=== PATIENT | female | born 1960 | race Hispanic/Latino ===

== ENCOUNTER 2018-06-09 07:03 | Observation (INO) | payer OTHER ==
[2018-06-08 15:32] LABS: BASOPHILS % 0.6 % (0.0-1.0); EOSINOPHILS # (AUTO) 0.3 (0.0-0.4); EOSINOPHILS % 4.1 % (0.0-6.0); HEMATOCRIT 37.5 % (34.2-44.1); HEMOGLOBIN 12.7 g/dL (12.0-16.0); LYMPHOCYTES # (AUTO) 1.4 (1.0-3.2); LYMPHOCYTES % 21.1 % (18.0-39.1); MEAN CORPUSCULAR HEMOGLOBIN 28.8 pg (28-32); MEAN CORPUSCULAR HGB CONC 33.9 g/dL (31-35); MONOCYTES # (AUTO) 0.3 (0.2-0.8); NEUTROPHILS # (AUTO) 4.8 (2.1-6.9); NEUTROPHILS % 69.9 % (38.7-80.0); PLATELET COUNT 230 x10e3/uL (140-360); RED BLOOD COUNT 4.41 x10e6/uL (3.6-5.1); RED CELL DISTRIBUTION WIDTH 14.3 % (11.7-14.4)
[2018-06-08 15:48] LABS: ANION GAP 11.9 mmol/L (8-16); BLOOD UREA NITROGEN 12 mg/dL (7-26); BUN/CREATININE RATIO 15 (6-25); CARBON DIOXIDE 29 mmol/L (22-29); CHLORIDE 102 mmol/L (98-107); CREATININE, SERUM 0.82 mg/dL (0.57-1.11); EST GLOMERULAR FILTRATION RATE > 60 ML/MIN (60-); GLUCOSE 144 mg/dL (74-118); POTASSIUM 3.9 mmol/L (3.5-5.1); SODIUM 139 mmol/L (136-145)
[2018-06-08 15:51] LABS: INR 0.91; PROTHROMBIN TIME 13.1 seconds (11.9-14.5)
[2018-06-08 15:52] LABS: PARTIAL THROMBOPLASTIN TIME 33.5 seconds (23.8-35.5)
--- NOTE | 2018-06-08 15:54 | Diagnostic Imaging Report ---
EXAM: XR CHEST 2 VIEWS DATE: 06/08/2018 3:06 PM INDICATION: Preoperative. Cervical spine surgery. COMPARISON: None FINDINGS: Lines and Tubes: None Heart and Mediastinum: No acute cardiomediastinal findings. Mild aortic vascular calcifications. Lungs and Pleura: No significant pleural effusion, pneumothorax, or focal consolidation. Minimal opacities in the lung bases statistically represent atelectasis, however, infectious process could have a similar appearance. Bones and Soft Tissues: No acute findings. IMPRESSION: 1. No acute cardiopulmonary findings. Signed by: Dr. Louis Taveras MD on 06/08/2018 3:51 PM
[~2018-06-09] VITALS: Ht 154.9 cm; Wt 94.4 kg
[~2018-06-09 07:03] MED LIST: BACITRACIN 50,000 UNIT VIAL ONE; BUPIVACAINE 0.5%/EPI 30 ML SDV INJ ONE; CYMBALTA30 MG; GELATIN SPONGE 12-7MM ONE; LYRICA25 MG PO; THROMBIN FOR SOLN 5,000 UNIT VIAL ONE
--- OUTSIDE RECORDS SUMMARY | 2018-06-09 07:05 | XMS REPORT ---
Author Author [facility] Address Unknown Phone Unavailable Care Team Providers Care Edger Hand Name Role Phone LUCIE CARDOZA Unavailable Unavailable Problems This patient has no known problems. Allergies, Adverse Reactions, Alerts This patient has no known allergies or adverse reactions. Medications This patient has no known medications. Results Test Description Test Time Test Comments Text Results Atomic Results Result Comments CHEST 2 VIEWS 2018-06-08 15:50:00 [place] [address] Patient Name: SHERIF KIM MR #: [id number] : 1960 Age/Sex: 57/F Req #: [id number] Adm Physician: Ordered by: LUCIE CARDOZA MD Report #: [id number] Location: OR Room/Bed: Procedure: [id number] DX/CHEST 2 VIEWS Exam Date: 06/08/18 Exam Time: 1520 REPORT STATUS: Signed EXAM: XR CHEST 2 VIEWS DATE: 06/08/2018 3:06 PM IND ICATION: Preoperative. Cervical spine surgery. COMPARISON: None FINDINGS: Lines and Tubes: None Heart and Mediastinum: No acute cardiomediastinal findings. Mild aortic vascular calcifications. Lungs and Pleura: No significant pleural effusion, pneumothorax, or focal consolidation. Minimal opacities in the lung bases statistically represent atelectasis, however, infectious process could have a similar appearance. Bones and Soft Tissues: No acute findings. IMPRESSION: 1. No acute cardiopulmonary findings. Signed by: Dr. Louis Momin MD on 06/08/2018 3:5 1 PM Dictated By: LOUIS MOMIN MD 50 Transcribed By: TROY on 06/08/181550 COPY TO: LUCIE CARDOZA MD
[2018-06-09] MEDS ORDERED: ACETAMINOPHEN 1000 MG/100 ML 100 ML IV ONE (07:16)
[2018-06-09] MEDS ORDERED: LIDOCAINE HCL (LTA) 4 ML SOLN ONE (07:16)
[2018-06-09] MEDS ORDERED: CEFAZOLIN SOD 2 GM/D5W 50ML 50 ML IV ONE (07:39)
[2018-06-09] MEDS: LACTATED RINGER'S 1,000 ML IV SCH ×3 (10:54→20:31)
[2018-06-09] MEDS ORDERED: MORPHINE SULFATE 5 MG/ML VIAL IM PRN (11:00)
[2018-06-09] MEDS ORDERED: ONDANSETRON HCL INJ 2 MG/ML VIAL IV PRN (11:00)
[2018-06-09] MEDS ORDERED: HYDROMORPHONE 2MG/ML 2 MG/ML ML IV PRN (11:00)
[2018-06-09] MEDS ORDERED: ACETAMINOPHEN 325 MG TAB PO PRN (11:00)
[2018-06-09] MEDS ORDERED: MAGNESIUM/ALUMINUM/SIMETHICONE 30 ML UDC PO PRN (11:00)
[2018-06-09] MEDS ORDERED: PROMETHAZINE HCL (IM) 25 MG/ML VIAL IM PRN (11:00)
[2018-06-09] MEDS ORDERED: FENTANYL CITRATE/PF 100MCG/2 ML INJ ONE ×2 (11:11→17:22)
--- NOTE | 2018-06-09 11:23 | Operative Report ---
DATE OF PROCEDURE: June 09, 2018 PREOPERATIVE DIAGNOSIS: C5-6 and C6-7 spondylosis and foraminal stenosis with radiculopathy, M50.120. POSTOPERATIVE DIAGNOSIS: C5-6 and C6-7 spondylosis and foraminal stenosis with radiculopathy, M50.120. PROCEDURES 1. C5-6 anterior cervical diskectomy and microsurgical osteophyte resection and allograft fusion, . 2. C6-C7 anterior cervical diskectomy and microsurgical osteophyte resection and allograft fusion, . 3. Preparation of tricortical iliac crest allograft, . 4. C5-6 and C6-7 anterior cervical plate and screw fixation, . ANESTHESIA: General. INDICATIONS: The patient is a woman who presents with C5-C6 and C6-C7 spondylosis and disk herniations and bilateral foraminal stenosis, worse on the right symptomatic with a right-sided cervical radiculopathy refractory to conservative treatment. She was taken to the operating room for 2-level anterior cervical decompression and fusion. PROCEDURE: After the induction of general anesthesia, the patient was placed on the operating table in the supine position. The right side of the neck was prepped and draped in sterile fashion. The fluoroscopic C-arm was positioned in cross-table lateral orientation. A small transverse incision was created on the right side of the neck superimposed on the C6 vertebral body as determined by fluoroscopy. The platysma was divided in line with the incision. A subplatysmal dissection was carried out. An avascular plane of dissection was developed medial to sternocleidomastoid muscle and was followed medial to the carotid sheath to the anterior border the cervical spine. The deep cervical fascia was opened. The esophagus was retracted to the left. The attachments of the longus coli muscles to the anterolateral aspects of the vertebral bodies of C5, C6 and C7 were divided. The anterior longitudinal ligament was resected. Partridge posts were inserted into C5 and C7. The Partridge distractor was used to distract both disk spaces simultaneously. The anterior annuli of disks were incised a #11 blade. The contents of both disks were thoroughly evacuated with angled curets and pituitary rongeurs. The posterior osteophytes were meticulously drilled with a 2-mm cutting bur on a high-speed drill until they were completely removed. The posterior annulus of the disk, herniated disk material and posterior longitudinal ligament were resected layer by layer until the dura was fully exposed and decompressed. The medial aspects of uncinate processes were resected bilaterally to further expose and decompress the origins of the corresponding nerve roots. After satisfactory decompression had been achieved, the endplates were prepared for fusion. Two pieces of tricortical iliac crest allograft were cut to size and shapes of the spaces and were inserted into the disk spaces under distraction and fluoroscopic guidance. Distraction was released, and the distraction posts were removed. A Synthes CSLP variable-type anterior cervical plate was selected and affixed to the vertebral bodies of C5, C6 and C7 with 3 pairs of 14 x 4.35 mm screws. Each screw hole was first drilled and tapped under lateral fluoroscopic guidance. Each screw was locked with the appropriate locking screws. An excellent construct was obtained. The wound was copiously irrigated with Bacitracin solution. Meticulous hemostasis was secured. Retractor was removed. The platysma was closed with 3-0 Vicryl sutures. The skin was closed with 4-0 Monocryl sutures in a subcuticular fashion. Steri-Strips and dressing were applied. The patient was awakened, extubated and taken to the postanesthesia care unit in stable condition. No intraoperative complications were encountered. Estimated blood loss was 30 mL. Job#: [id number]
[2018-06-09 13:47] VITALS: BP 152/83
[2018-06-09 13:51] VITALS: BP 152/83
[2018-06-09 13:52] VITALS: BP 152/83
[2018-06-09] MEDS ORDERED: CEFAZOLIN SOD 1 GM/D5W 50ML 50 ML IV SCH (14:00)
[2018-06-09] MEDS: OXYCODONE/ACETAMINOPHEN 5-325 1 EACH TABLET PO PRN (15:01)
[2018-06-09] MEDS: CARISOPRODOL 350 MG TAB PO PRN (15:01)
[2018-06-09] MEDS ORDERED: MORPHINE SULFATE INJ 10 MG/ML IM PRN (15:45)
[2018-06-09 16:00] VITALS: BP 146/70
[2018-06-09] MEDS: CEFAZOLIN SOD 1 GM VIAL IV SCH (16:44)
[2018-06-09] MEDS ORDERED: MIDAZOLAM HCL 2 MG/2 ML VIAL ONE (17:22)
[2018-06-09] MEDS ORDERED: ONDANSETRON HCL INJ 2 MG/ML VIAL ONE (19:24)
[2018-06-09] MEDS ORDERED: ROCURONIUM BROMIDE 10 MG/ML 5ML VIAL ONE (19:24)
[2018-06-09] MEDS ORDERED: LIDOCAINE HCL 2% LOCAL INJ 5 ML SDV VIAL INJ ONE (19:24)
[2018-06-09] MEDS ORDERED: SEVOFLURANE INHAL SOLN 250 ML PEN BTL ONE (19:24)
[2018-06-09] MEDS ORDERED: PROPOFOL IV EMULSION 10 MG/ML 20 ML VIAL ONE (19:24)
[2018-06-09] MEDS ORDERED: DEXAMETHASONE SOD PHOS INJ 4 MG/ML VIAL ONE (19:24)
[2018-06-09 19:40] VITALS: BP 144/67
[2018-06-09] MEDS ORDERED: ZOLPIDEM TARTRATE 5 MG TAB PO PRN (21:00)
[2018-06-10] VITALS: BP 144/67
[2018-06-10] MEDS: CEFAZOLIN SOD 1 GM VIAL IV SCH ×2 (00:18→08:37)
[2018-06-10 00:50] VITALS: BP 119/65
[2018-06-10 05:10] VITALS: BP 135/63
[2018-06-10] MEDS: CARISOPRODOL 350 MG TAB PO PRN (06:17)
[2018-06-10] MEDS: OXYCODONE/ACETAMINOPHEN 5-325 1 EACH TABLET PO PRN (06:17)
--- NOTE | 2018-06-10 06:22 | Diagnostic Imaging Report ---
C-SPINE 2 VIEWS AP LATERAL Comparison: None Clinical history: Neck pain, Status post surgery Findings: Straightening of the normal cervical lordosis with c-collar in place. Status post C5-7 ACDF. Impression: Status post C5-7 ACDF without acute complication. Signed by: Dr Queenie Garcia MD on 06/10/2018 6:18 AM
[2018-06-10 07:25] VITALS: BP 117/58
[2018-06-10] MEDS ORDERED: NORCO 7.5-3251 EACH PO (08:18)
[2018-06-10 08:57] VITALS: BP 117/58
[2018-06-10] MEDS ORDERED: DULOXETINE HCL 30 MG DELAYED RELEASE PO SCH (09:00)
[2018-06-10] MEDS ORDERED: PREGABALIN 25 MG CAP PO SCH (09:00)
== END 2018-06-10 09:27 | disposition home or self-care (01) ==
LOC: OR 07:03 → EDBD 09:00 → PACU V 10:55 → IMCU 13:25
PROVIDERS: ADMIT Neurological Surgery; ATTEND Neurological Surgery
DX: M47.22 Other spondylosis with radiculopathy, cervical region (principal); M50.122 Cervical disc disorder at C5-C6 level with radiculopathy; Z98.84 Bariatric surgery status; E66.9 Obesity, unspecified; Z68.39 Body mass index [BMI] 39.0-39.9, adult; Z01.810 Encounter for preprocedural cardiovascular examination; Z01.812 Encounter for preprocedural laboratory examination; Z01.811 Encounter for preprocedural respiratory examination
CPT/HCPCS: 20931; 22551; 22552; 36415; 71046; 72040; 77003; 80048; 85025; 85610; 85730; 86850; 86900; 88304; 88311; 93005; C1713 ×4; C1768; G0378 ×2; J0131; J0690 ×2; J1100; J1170; J2001; J2250; J2405; J2550; J2704